=== PATIENT | female | born 1990 | race Hispanic/Latino ===

== ENCOUNTER 2021-11-10 16:29 | Emergency (ER) | payer SELFPAY ==
--- NOTE | 2021-11-10 17:55 | ER ---
Nurse's Notes [facility] Name: Rhonda Clay Age: 31 yrs Sex: Female : 1990 Arrival Date: 11/10/2021 Time: 16:30 Bed Waiting Private MD: Diagnosis: ED Course: 11/10 16:30 Patient arrived in ED. mr 17:07 Bobby Cisneros MD is Attending Physician. [facility] 17:30 Patient's name was called from ER lobby. No response. Unable to locate patient. Will ap3 disposition as left without being seen by a provider. 17:40 Patient's name was called from ER lobby. No response. Unable to locate patient. Will ap3 disposition as left without being seen by a provider. 17:54 Patient's name was called from ER lobby. No response. Unable to locate patient. Will ap3 disposition as left without being seen by a provider. Administered Medications: No medications were administered Outcome: 17:54 Patient left the ED. ap3 Signatures: Bobby Cisneros MD MD [facility] Lilibeth Tinajero, RN RN ap3
== END 2021-11-10 17:54 | disposition left against medical advice (07) ==
LOC: ER 16:29
DX: Z02.9 Encounter for administrative examinations, unspecified (principal)

== ENCOUNTER 2022-04-12 20:00 | Emergency (ER) | payer SELFPAY ==
--- NOTE | 2022-04-12 21:22 | EDPHYS ---
Physician Documentation [facility] Name: Rhonda Clay Age: 32 yrs Sex: Female : 1990 Arrival Date: 04/12/2022 Time: 20:03 Bed 14 Private MD: ED Physician Eva Duarte HPI: 04/12 20:55 This 32 yrs old Female presents to ER via Ambulatory with complaints of Covid kb Syptoms. 20:55 The patient or guardian reports flu symptoms, myalgias. Onset: The symptoms/episode kb began/occurred yesterday. Severity of symptoms: At their worst the symptoms were moderate, in the emergency department the symptoms are unchanged. Modifying factors: The symptoms are alleviated by nothing, the symptoms are aggravated by nothing. Associated signs and symptoms: Pertinent positives: rhinorrhea, sore throat. The patient has not experienced similar symptoms in the past. The patient has not recently seen a physician. Pt reports bodyaches, headache, chills, runny nose and sore throat that started yesterday. 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 - Social history:: Smoking status: Patient reports the use of cigarette tobacco products, smokes one-half pack cigarettes per day, Patient uses alcohol, occasionally. ROS: 20:55 Respiratory: Negative for shortness of breath, cough, wheezing, and pleuritic chest kb pain. 20:55 Constitutional: Positive for body aches, chills, fatigue, malaise. 20:55 ENT: Positive for rhinorrhea, sore throat. 20:55 Neuro: Positive for headache. 20:55 All other systems are negative. Exam: 20:55 Constitutional: This is a well developed, well nourished patient who is awake, alert, kb and in no acute distress. Head/Face: Normocephalic, atraumatic. ENT: Moist Mucous membranes Cardiovascular: Regular rate and rhythm with a normal S1 and S2. No gallops, murmurs, or rubs. No pulse deficits. Respiratory: Respirations even and unlabored. No increased work of breathing. Talking in full sentences Skin: Warm, dry with normal turgor. Normal color. MS/ Extremity: Pulses equal, no cyanosis. Neurovascular intact. Full, normal range of motion. Neuro: Awake and alert, GCS 15, oriented to person, place, time, and situation. Moves all extremities. Normal gait. Psych: Awake, alert, with orientation to person, place and time. Behavior, mood, and affect are within normal limits. Vital Signs: 20:06 BP 108 / 70; Pulse 91; Resp 18; Temp 98.9(TE); Pulse Ox 98% on R/A; Weight 64.41 kg; ld1 Height 5 ft. 2 in. (157.48 cm); Pain 5/10; 20:06 Body Mass Index 25.97 (64.41 kg, 157.48 cm) ld1 MDM: 20:05 Patient medically screened. kb 20:56 Data reviewed: vital signs, nurses notes. Data reviewed: nurses notes. Data kb interpreted: Pulse oximetry: on room air is 98 %. Interpretation: normal. 21:21 Counseling: I had a detailed discussion with the patient and/or guardian regarding: the kb historical points, exam findings, and any diagnostic results supporting the discharge/admit diagnosis, lab results, the need for outpatient follow up, a family practitioner, to return to the emergency department if symptoms worsen or persist or if there are any questions or concerns that arise at home. 04/12 20:08 Order name: Flu; Complete Time: 20:42 kb 04/12 20:08 Order name: COVID-19 SARS RT PCR (Document "Date of Onset" if Symptomatic); Complete kb Time: 21:21 Administered Medications: No medications were administered Disposition Summary: 04/12/22 21:21 Discharge Ordered Location: Home Condition: Stable kb Diagnosis - Coronavirus infection, unspecified kb Followup: kb - With: Emergency Department - When: As needed - Reason: Worsening of condition Followup: kb - With: Private Physician - When: 2 - 3 days - Reason: Recheck today's complaints, Continuance of care, Re-evaluation by your physician Discharge Instructions: - Discharge Summary Sheet kb - Viral Respiratory Infection, [id number] kb - COVID-19 kb Forms: - Medication Reconciliation Form kb - Thank You Letter kb - Antibiotic Education kb - Prescription Opioid Use kb Signatures: Dispatcher [employer] Mya Salazar, Lisa De La Fuente, RN RN ld1
--- NOTE | 2022-04-12 21:22 | ER ---
Nurse's Notes [facility] Name: Rhonda Clay Age: 32 yrs Sex: Female : 1990 Arrival Date: 04/12/2022 Time: 20:03 Bed 14 Private MD: Diagnosis: Coronavirus infection, unspecified Presentation: 04/12 20:06 Chief complaint: Patient states: C/O body aches, headache, chills. Onset last night. ld1 Coronavirus screen: Client presents with at least one sign or symptom that may indicate coronavirus-19. Standard/surgical mask placed on the client. Ebola Screen: No symptoms or risks identified at this time. Initial Sepsis Screen: Does the patient meet any 2 criteria? No. Patient's initial sepsis screen is negative. Does the patient have a suspected source of infection? No. Patient's initial sepsis screen is negative. Risk Assessment: Do you want to hurt yourself or someone else? Patient reports no desire to harm self or others. Onset of symptoms was April 11, 2022. 20:06 Method Of Arrival: Ambulatory ld1 20:06 Acuity: RADHA 4 ld1 Triage Assessment: 20:09 General: Appears in no apparent distress. uncomfortable, Behavior is calm, cooperative, ld1 appropriate for age. Pain: Complains of pain in Generalized body aches. Neuro: Level of Consciousness is awake, alert, obeys commands, Oriented to person, place, time, situation. Cardiovascular: Capillary refill < 3 seconds Patient's skin is warm and dry. Respiratory: Reports cough that is Airway is patent Respiratory effort is even, unlabored. GI: Reports nausea. 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 - Social history:: Smoking status: Patient reports the use of cigarette tobacco products, smokes one-half pack cigarettes per day, Patient uses alcohol, occasionally. Screenin:29 Abuse screen: Denies threats or abuse. Nutritional screening: No deficits noted. ll3 Tuberculosis screening: No symptoms or risk factors identified. Fall Risk None identified. Assessment: 20:15 General: Appears ill, Behavior is calm, cooperative. Pain: Complains of pain in All ll3 over Pain currently is 8 out of 10 on a pain scale. Pain began 1 day ago. Neuro: Level of Consciousness is awake, alert, obeys commands, Oriented to person, place, time, situation. Respiratory: Respiratory effort is even, unlabored, Respiratory pattern is regular, symmetrical. EENT: Throat Pt reports sore throat. Derm: Skin is pink, warm \\T\\ dry. 21:14 Reassessment: No changes from previously documented assessment. Patient and/or family ll3 updated on plan of care and expected duration. Pain level reassessed. Patient is alert, oriented x 3, equal unlabored respirations, skin warm/dry/pink. Vital Signs: 20:06 BP 108 / 70; Pulse 91; Resp 18; Temp 98.9(TE); Pulse Ox 98% on R/A; Weight 64.41 kg; ld1 Height 5 ft. 2 in. (157.48 cm); Pain 5/10; 20:06 Body Mass Index 25.97 (64.41 kg, 157.48 cm) ld1 ED Course: 20:03 Patient arrived in ED. ja2 20:05 Mya Wilburn FNP-C [facility]. kb 20:05 Eva Duarte MD is Attending Physician. kb 20:09 Triage completed. ld1 20:09 Arm band placed on right wrist. ld1 20:13 COVID-19 SARS RT PCR (Document "Date of Onset" if Symptomatic) Sent. ld1 20:13 Flu Sent. ld1 21:13 Myron Jonas, JOSE is Primary Nurse. ll3 21:29 Myron Jonas RN is Primary Nurse. ll3 21:29 Patient has correct armband on for positive identification. Bed in low position. Call ll3 light in reach. Side rails up X 1. 21:29 No provider procedures requiring assistance completed. Patient did not have IV access ll3 during this emergency room visit. Administered Medications: No medications were administered Medication: 21:29 VIS not applicable for this client. ll3 Outcome: 21:21 Discharge ordered by . kb 21:29 Discharged to home ambulatory. ll3 21:29 Condition: stable 21:29 Discharge instructions given to patient, Instructed on discharge instructions, follow up and referral plans. Demonstrated understanding of instructions, follow-up care. 21:30 Patient left the ED. ll3 Signatures: Mya Wilburn, STAVE CUTTING SUPERVISOR-C STAVE CUTTING SUPERVISOR-Lisa Rodriguez RN RN ld1 Gaby Granger Lynsea RN RN ll3
[2022-04-12 21:39] VITALS: BP 108/70; TEMP 98.9; O2SAT 98
== END 2022-04-12 21:30 | disposition home or self-care (01) ==
LOC: ER 20:00
DX: U07.1 COVID-19 (principal); F41.9 Anxiety disorder, unspecified; F17.210 Nicotine dependence, cigarettes, uncomplicated
CPT/HCPCS: 87804; 99283; U0003